=== PATIENT | male | born 1990 | race Caucasian/White ===

== ENCOUNTER 2018-10-31 10:07 | Emergency (ER) | payer OTHER ==
[2018-10-31 12:42] LABS: URIC ACID 9.9 mg/dl (3.1-7.9)
[2018-10-31] MEDS: KETOROLAC 60 MG INJ IM (13:31)
[2018-10-31] MEDS: HYDROCODONE/APAP (10/325) TAB PO (13:32)
== END 2018-10-31 13:42 | disposition home or self-care (01) ==
LOC: FTE 10:07
DX: M10.9 Gout, unspecified (principal)
CPT/HCPCS: 36415; 73630-LT; 84560; 96372; 99284-25